=== PATIENT | female | born 1985 | race Caucasian/White ===

== ENCOUNTER 2021-12-31 05:36 | Emergency (ER) | payer OTHER ==
[~2021-12-31 05:36] MED LIST: LEVOFLOXACIN500 MG PO; METRONIDAZOLE500 MG PO
[2021-12-31 06:10] LABS: RED BLOOD COUNT 2.81 M/UL (4.00-5.10); WHITE BLOOD COUNT 6.7 K/UL (4.5-11.0)
[2021-12-31 06:13] LABS: HEMOGLOBIN 6.1 gm/dl (12.3-15.3)
== END 2021-12-31 13:58 | disposition other institution (70) ==
LOC: ER1 05:36
PROVIDERS: Student in an Organized Health Care Education/Training Program
DX: N13.2 Hydronephrosis with renal and ureteral calculous obstruction (principal); N17.9 Acute kidney failure, unspecified; M79.81 Nontraumatic hematoma of soft tissue; F17.210 Nicotine dependence, cigarettes, uncomplicated
CPT/HCPCS: 36430; 51702; 80053; 81001; 84703; 85025; 86850; 86900; 86901; 86920; 87086; 96374; 96375; 99285; J2270; J2405; J7050; P9016; Q9967

== ENCOUNTER 2022-02-17 20:21 | Inpatient (IN) | payer OTHER ==
[~2022-02-17] VITALS: Ht 167.6 cm; Wt 53.1 kg
[2022-02-17 21:37] LABS: RED BLOOD COUNT 2.42 M/UL (4.00-5.10); WHITE BLOOD COUNT 2.8 K/UL (4.5-11.0)
[2022-02-17 22:02] LABS: HEMOGLOBIN 6.4 gm/dl (12.3-15.3)
[2022-02-18 10:28] LABS: WHITE BLOOD COUNT 3.1 K/UL (4.5-11.0)
[2022-02-18 10:43] LABS: HEMOGLOBIN 9.1 gm/dl (12.3-15.3); RED BLOOD COUNT 3.33 M/UL (4.00-5.10)
[2022-02-18] MEDS ORDERED: GABAPENTIN300 MG PO (11:57)
[2022-02-18] MEDS ORDERED: IBU800 MG PO (11:57)
[2022-02-18] MEDS ORDERED: ONDANSETRON ODT4 MG PO (11:57)
[2022-02-18] MEDS ORDERED: SENNA8.6 MG PO (11:58)
[2022-02-18] MEDS ORDERED: NICOTINE PATCH1 EAC1 TD (11:58)
[2022-02-18] MEDS ORDERED: DULOXETINE HCL30 MG PO (11:58)
[2022-02-18] MEDS ORDERED: BUPRENORPHIN-N1 EACH SL (11:59)
[2022-02-19 03:49] LABS: HEMOGLOBIN 8.3 gm/dl (12.3-15.3); RED BLOOD COUNT 3.04 M/UL (4.00-5.10); WHITE BLOOD COUNT 2.8 K/UL (4.5-11.0)
[2022-02-20 02:49] LABS: HEMOGLOBIN 7.4 gm/dl (12.3-15.3); WHITE BLOOD COUNT 2.5 K/UL (4.5-11.0)
[2022-02-20 02:51] LABS: RED BLOOD COUNT 2.63 M/UL (4.00-5.10)
[2022-02-21 04:02] LABS: HEMOGLOBIN 8.1 gm/dl (12.3-15.3); WHITE BLOOD COUNT 2.7 K/UL (4.5-11.0)
[2022-02-21 04:06] LABS: RED BLOOD COUNT 2.94 M/UL (4.00-5.10)
--- NOTE | 2022-02-21 12:32 | NUR ---
1233- SPOKE WITH DR. DE LA O, STATES PT COULD GO HOME FROM HIS SIDE. HE WANTS THE PATIENT TO RETURN TO OFFICE ON THURSDAY AT [address] BOO AND PT WAS MADE AWARE.
[2022-02-22 03:09] LABS: RED BLOOD COUNT 2.95 M/UL (4.00-5.10); WHITE BLOOD COUNT 2.4 K/UL (4.5-11.0)
[2022-02-22] MEDS ORDERED: CEFEPIME HCL1 GM INJ (10:27)
== END 2022-02-22 15:00 | disposition home health service (06) | DRG 682 ==
LOC: ER1 20:21 → CDU 22:44 → M/S 22:44
PROVIDERS: Internal Medicine; Nurse Practitioner; Registered Nurse; ADMIT Internal Medicine
PROC: 30233N1 Transfusion of Nonautologous Red Blood Cells into Peripheral Vein, Percutaneous Approach (ICD-10-PCS; principal; 2022-02-18)
DX: N17.9 Acute kidney failure, unspecified (principal); G93.41 Metabolic encephalopathy; D61.818 Other pancytopenia; E87.1 Hypo-osmolality and hyponatremia; N39.0 Urinary tract infection, site not specified; D63.0 Anemia in neoplastic disease; E83.52 Hypercalcemia; D50.9 Iron deficiency anemia, unspecified; E83.42 Hypomagnesemia; E87.6 Hypokalemia; N18.9 Chronic kidney disease, unspecified; B96.89 Other specified bacterial agents as the cause of diseases classified elsewhere; B96.5 Pseudomonas (aeruginosa) (mallei) (pseudomallei) as the cause of diseases classified elsewhere; Z93.8 Other artificial opening status; Z98.890 Other specified postprocedural states; Z93.3 Colostomy status; Z85.51 Personal history of malignant neoplasm of bladder
CPT/HCPCS: 36415; 70450; 71045; 80048; 80053; 80076; 80307; 81001; 82140; 82330; 82397; 82607; 82652; 82728; 82746; 83540; 83550; 83735; 83970; 84100; 85025; 85610; 85730; 86850; 86900; 86901; 86920; 87040; 87077; 87086; 87186; 93005; 96374; 97116; 97116-GP-CQ; 97162; 97166; 97530; 99285; J0692; J0696; J1650; J2430; J2543; J3475; J3480; J7030; P9016

== ENCOUNTER → 2022-03-12 | Outpatient (CLI) | payer OTHER ==
[~2022-03-12] MED LIST changes: +BUPRENORPHIN-N1 EACH SL; +CEFEPIME HCL1 GM INJ; +DULOXETINE HCL30 MG PO; +GABAPENTIN300 MG PO; +IBU800 MG PO; +NICOTINE PATCH1 EAC1 TD; +ONDANSETRON ODT4 MG PO; +SENNA8.6 MG PO
== END ==
LOC: LAB 11:58
DX: J02.9 Acute pharyngitis, unspecified (principal); R06.02 Shortness of breath; M79.10 Myalgia, unspecified site; Z20.822 Contact with and (suspected) exposure to COVID-19
CPT/HCPCS: U0002

== ENCOUNTER 2022-03-22 10:59 | Inpatient (IN) | payer OTHER ==
[~2022-03-22] VITALS: Ht 160 cm; Wt 75.0 kg
[~2022-03-22 10:59] MED LIST changes: +DILAUDID2 MG PO; -DULOXETINE HCL30 MG PO; +DULOXETINE HCL60 MG PO; -ONDANSETRON ODT4 MG PO; +ONDANSETRON ODT8 MG PO
[2022-03-22 11:58] LABS: HEMOGLOBIN 7.2 gm/dl (12.3-15.3); RED BLOOD COUNT 2.52 M/UL (4.00-5.10); WHITE BLOOD COUNT 5.4 K/UL (4.5-11.0)
[2022-03-22 12:10] LABS: BUN/CREATININE RATIO 23 (0-10)
[2022-03-22 16:55] LABS: HEMOGLOBIN 5.5 gm/dl (12.3-15.3)
[2022-03-22 20:09] LABS: HEMOGLOBIN 7.4 gm/dl (12.3-15.3)
[2022-03-22 22:33] LABS: HEMOGLOBIN 7.5 gm/dl (12.3-15.3); RED BLOOD COUNT 2.49 M/UL (4.00-5.10)
[2022-03-22 22:38] LABS: WHITE BLOOD COUNT 1.2 K/UL (4.5-11.0)
[2022-03-23 04:29] LABS: HEMOGLOBIN 7.2 gm/dl (12.3-15.3); RED BLOOD COUNT 2.38 M/UL (4.00-5.10)
[2022-03-23 04:41] LABS: WHITE BLOOD COUNT 1.1 K/UL (4.5-11.0)
[2022-03-23] MEDS ORDERED: OXYCODON-ACETA1 EAC1 PO (16:09)
[2022-03-23] MEDS ORDERED: MEGESTROL400 MG/11 PO (16:17)
[2022-03-23] MEDS ORDERED: IBU800 MG PO (16:18)
--- NOTE | 2022-03-24 01:39 | NUR ---
HAS ATTEMPTED TO GET OOB TWICE. BED ALARM ON ,SR UP X 2 ,BED IN LOW POSITION. REMINDED EACH TIME ARTERIAL LINE IN RIGHT GROIN. WANTING NGT REMOVED. EXPLAINED TUBE NEEDS TO REMAIN IN PLACE UNTIL MD GIVES ORDER TO REMOVE IT. REQUESTING WATER . NPO STATUS EXPLAINED. MOUTH SWABS PROVIDED. STATES, "IM NOT USED TO NOT GETTING MY WAY ! " ALL CONCERNS AND REQUEST ADDRESSED. NO FURTHER AT THIS TIME.
--- NOTE | 2022-03-24 02:00 | NUR ---
CALLED TO ROOM , SHE WAS HOLD NG TUBE STATING , " I PULLED IT OUT. I DIDNT WANT IT ANYMORE." I EXPLAINED ALL MEDICAL EQUIPMENT IS THERE FOR A PURPOSE . I REQUEST THAT SHE DOESNT REMOVE ANYTHING ELSE. REFUSES TO KEEP LEG WILL ARTERIAL LINE EXTENDED. SITTING CROSS LEGGED IN BED DESPITE MULTIPLE ATTEMPTS EXPLIAINING THE LINE WAS PLACED IN AN ARTERY. WAVE FORM REMAINS WNL . SITE WNL. WILL CONTIUE TO MONITOR.
[2022-03-24 04:53] LABS: RED BLOOD COUNT 2.15 M/UL (4.00-5.10)
[2022-03-24 05:11] LABS: HEMOGLOBIN 6.5 gm/dl (12.3-15.3)
[2022-03-24 18:42] LABS: HEMOGLOBIN 8.2 gm/dl (12.3-15.3)
[2022-03-24 18:45] LABS: RED BLOOD COUNT 2.74 M/UL (4.00-5.10); WHITE BLOOD COUNT 3.9 K/UL (4.5-11.0)
[2022-03-25 04:52] LABS: RED BLOOD COUNT 2.66 M/UL (4.00-5.10); WHITE BLOOD COUNT 3.4 K/UL (4.5-11.0)
--- NOTE | 2022-03-25 12:18 | NUR ---
CALLED PHARMACY FOR RECOMMENDATIONS FOR PAIN CONTROL FOR PATIENT. PATIENT RECEIVED DILAUDID 0.5MG IVP AT 1120 AND BY 1150 PATIENT IS CRYING AND WRITHING IN BED WITH PAIN. PHARMACIST RECOMMENDED TO INCREASE DILAUDID.
[2022-03-26 09:11] LABS: WHITE BLOOD COUNT 3.9 K/UL (4.5-11.0)
[2022-03-26 09:22] LABS: RED BLOOD COUNT 3.04 M/UL (4.00-5.10)
[2022-03-26 09:39] LABS: BUN/CREATININE RATIO 18 (0-10)
[2022-03-27 09:44] LABS: HEMOGLOBIN 8.8 gm/dl (12.3-15.3); RED BLOOD COUNT 2.94 M/UL (4.00-5.10); WHITE BLOOD COUNT 2.7 K/UL (4.5-11.0)
[2022-03-27 10:09] LABS: BUN/CREATININE RATIO 14 (0-10)
--- NOTE | 2022-03-27 14:28 | NUR ---
patient non compliant using her call matson, provided fall precautions and patient will verbalized understanding but continue to be non compliant. patient was seen up beside of bed, colostomy bag on the floor and feces all over her body and surrounding area. provided hygeine care and colostomy care and secured nephrostomy and travis drain in placed. IJ dressing changed also. patient have 1:1 sitter at this time.
[2022-03-28 04:22] LABS: HEMOGLOBIN 8.1 gm/dl (12.3-15.3); RED BLOOD COUNT 2.71 M/UL (4.00-5.10); WHITE BLOOD COUNT 2.5 K/UL (4.5-11.0)
[2022-03-28 04:56] LABS: BUN/CREATININE RATIO 13 (0-10)
[2022-03-29 06:55] LABS: HEMOGLOBIN 8.2 gm/dl (12.3-15.3); RED BLOOD COUNT 2.7 M/UL (4.00-5.10); WHITE BLOOD COUNT 2.1 K/UL (4.5-11.0)
[2022-03-29 07:10] LABS: BUN/CREATININE RATIO 10 (0-10)
[2022-03-30 07:26] LABS: HEMOGLOBIN 8.4 gm/dl (12.3-15.3); RED BLOOD COUNT 2.82 M/UL (4.00-5.10); WHITE BLOOD COUNT 2.3 K/UL (4.5-11.0)
[2022-03-30 07:50] LABS: BUN/CREATININE RATIO 10 (0-10)
[2022-03-31 06:52] LABS: WHITE BLOOD COUNT 2.1 K/UL (4.5-11.0)
[2022-03-31 06:56] LABS: RED BLOOD COUNT 2.26 M/UL (4.00-5.10)
[2022-03-31 06:57] LABS: HEMOGLOBIN 6.5 gm/dl (12.3-15.3)
[2022-04-01 03:21] LABS: HEMOGLOBIN 7.3 gm/dl (12.3-15.3); RED BLOOD COUNT 2.44 M/UL (4.00-5.10); WHITE BLOOD COUNT 2.2 K/UL (4.5-11.0)
--- NOTE | 2022-04-01 17:46 | NUR ---
pt accidently pulled out picc line from right brachial by accident
[2022-04-02 07:52] LABS: HEMOGLOBIN 7.7 gm/dl (12.3-15.3); RED BLOOD COUNT 2.6 M/UL (4.00-5.10)
[2022-04-02 07:55] LABS: WHITE BLOOD COUNT 2.8 K/UL (4.5-11.0)
[2022-04-03 08:53] LABS: RED BLOOD COUNT 2.25 M/UL (4.00-5.10)
[2022-04-03 08:55] LABS: HEMOGLOBIN 6.6 gm/dl (12.3-15.3); WHITE BLOOD COUNT 1.3 K/UL (4.5-11.0)
[2022-04-03] MEDS ORDERED: NALOXONE HCL4 MG (16:42)
[2022-04-03] MEDS ORDERED: FERROUS SULFAT325 M2 PO (16:42)
[2022-04-04 03:29] LABS: RED BLOOD COUNT 2.28 M/UL (4.00-5.10)
[2022-04-04 03:35] LABS: HEMOGLOBIN 6.7 gm/dl (12.3-15.3); WHITE BLOOD COUNT 1.3 K/UL (4.5-11.0)
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
[2022-04-05 03:02] LABS: RED BLOOD COUNT 2.8 M/UL (4.00-5.10); WHITE BLOOD COUNT 5.1 K/UL (4.5-11.0)
[2022-04-07 08:13] LABS: HEMOGLOBIN 8.6 gm/dl (12.3-15.3); RED BLOOD COUNT 2.96 M/UL (4.00-5.10); WHITE BLOOD COUNT 3.5 K/UL (4.5-11.0)
[2022-04-07] MEDS ORDERED: FERROUS SULFAT325 M2 PO (13:50)
--- NOTE | 2022-04-07 15:27 | NUR ---
04/07/22 1515 SSE GIVEN NO RESULTS, CAME OUT VAGINA WELL. NOTIFIED
[2022-04-08 03:05] LABS: HEMOGLOBIN 8.3 gm/dl (12.3-15.3); RED BLOOD COUNT 2.82 M/UL (4.00-5.10); WHITE BLOOD COUNT 3.9 K/UL (4.5-11.0)
--- NOTE | 2022-04-08 17:43 | NUR ---
04/08/22 1700 REFUSED CENTRAL LINE DRESSING CHANGE
[2022-04-09 04:50] LABS: HEMOGLOBIN 9.1 gm/dl (12.3-15.3); RED BLOOD COUNT 3.11 M/UL (4.00-5.10); WHITE BLOOD COUNT 8.6 K/UL (4.5-11.0)
[2022-04-09] MEDS ORDERED: ONDANSETRON ODT8 MG PO (09:46)
[2022-04-09] MEDS ORDERED: PROTONIX40 MG PO (09:46)
[2022-04-09] MEDS ORDERED: GABAPENTIN300 MG PO (09:46)
[2022-04-09] MEDS ORDERED: DILAUDID2 MG PO (09:46)
[2022-04-09] MEDS ORDERED: OXYCONTIN20 MG PO (09:46)
[2022-04-09] MEDS ORDERED: OXYCONTIN60 MG PO (09:54)
--- NOTE | 2022-04-09 12:02 | NUR ---
9-28-22 1200 REPORT CALLED TO DAVID AT [facility]
== END 2022-04-09 12:26 | disposition home health service (06) | DRG 853 ==
LOC: ER1 10:59 → CCU 14:13 → M/S 14:13 → CDU 14:13 → CCU 21:44 → M/S 03-26 18:37
PROVIDERS: Anesthesiology; Emergency Medicine; Internal Medicine; Internal Medicine Critical Care Medicine; Internal Medicine Infectious Disease; Physician Assistant; Surgery; ADMIT Internal Medicine
PROC: 0DQ64ZZ Repair Stomach, Percutaneous Endoscopic Approach (ICD-10-PCS; 2022-03-22)
PROC: 3E03329 Introduction of Other Anti-infective into Peripheral Vein, Percutaneous Approach (ICD-10-PCS; principal; 2022-03-22 17:07)
PROC: 3E043XZ Introduction of Vasopressor into Central Vein, Percutaneous Approach (ICD-10-PCS; 2022-03-23)
PROC: 30233N1 Transfusion of Nonautologous Red Blood Cells into Peripheral Vein, Percutaneous Approach (ICD-10-PCS; 2022-03-24)
PROC: B24BZZZ Ultrasonography of Heart with Aorta (ICD-10-PCS; 2022-03-24)
DX: A41.81 Sepsis due to Enterococcus (principal); I21.A1 Myocardial infarction type 2; R65.21 Severe sepsis with septic shock; J96.01 Acute respiratory failure with hypoxia; K25.2 Acute gastric ulcer with both hemorrhage and perforation; K26.2 Acute duodenal ulcer with both hemorrhage and perforation; R57.1 Hypovolemic shock; K65.9 Peritonitis, unspecified; E87.2 Acidosis; E87.1 Hypo-osmolality and hyponatremia; N32.1 Vesicointestinal fistula; N17.9 Acute kidney failure, unspecified; N39.0 Urinary tract infection, site not specified; D61.818 Other pancytopenia; D62 Acute posthemorrhagic anemia; Z16.29 Resistance to other single specified antibiotic; E44.0 Moderate protein-calorie malnutrition; N13.30 Unspecified hydronephrosis; S37.011A Minor contusion of right kidney, initial encounter; D50.9 Iron deficiency anemia, unspecified; B96.5 Pseudomonas (aeruginosa) (mallei) (pseudomallei) as the cause of diseases classified elsewhere; A41.89 Other specified sepsis; B18.2 Chronic viral hepatitis C; I12.9 Hypertensive chronic kidney disease with stage 1 through stage 4 chronic kidney disease, or unspecified chronic kidney disease; Z96.0 Presence of urogenital implants; N18.30 Chronic kidney disease, stage 3 unspecified; E87.6 Hypokalemia; F17.210 Nicotine dependence, cigarettes, uncomplicated; F41.9 Anxiety disorder, unspecified; G89.3 Neoplasm related pain (acute) (chronic); C53.9 Malignant neoplasm of cervix uteri, unspecified; E83.52 Hypercalcemia; F31.9 Bipolar disorder, unspecified; L89.159 Pressure ulcer of sacral region, unspecified stage; E86.0 Dehydration; Z93.3 Colostomy status; Z92.21 Personal history of antineoplastic chemotherapy; Z92.0 Personal history of contraception; Z98.890 Other specified postprocedural states; Z68.29 Body mass index [BMI] 29.0-29.9, adult
CPT/HCPCS: ECHO; 36415; 71045; 74018; 80048; 80053; 80202; 81001; 82550; 82553; 82803; 83036; 83540; 83550; 83605; 83735; 84100; 84132; 84484; 84703; 85014; 85018; 85025; 85027; 85049; 85384; 85610; 85730; 86140; 86850; 86900; 86901; 86920; 87040; 87070; 87077; 87086; 87186; 87205; 93005; 93306; 94002; 94003; 94760; 96374; 96375; 96376; 99285; C9113; J0696; J1100; J1170; J1200; J1442; J1642; J1756; J2185; J2250; J2370; J2405; J2543; J2704; J2920; J3010; J3370; J3475; J3480; J7030; J7042; J7070; P9016; P9037; P9047